=== PATIENT | male | born 1945 | race Caucasian/White ===

== ENCOUNTER 2023-10-06 11:22 | Emergency (ER) | payer OTHER ==
[2023-10-06] MEDS ORDERED: PAXLOVID PO ×2 (12:18→13:44)
[2023-10-06] MEDS ORDERED: BENZONATATE200 MG PO ×2 (12:18→13:44)
[2023-10-06 13:35] VITALS: BP 133/70
== END 2023-10-06 13:54 | disposition home or self-care (01) | DRG 179 ==
LOC: ED 11:22
DX: U07.1 COVID-19 (principal); R05.9 Cough, unspecified; R52 Pain, unspecified; R68.83 Chills (without fever); I10 Essential (primary) hypertension; E11.9 Type 2 diabetes mellitus without complications; I48.91 Unspecified atrial fibrillation

== ENCOUNTER 2024-11-08 07:58 | Emergency (ER) | payer OTHER ==
[~2024-11-08] VITALS: Ht 180.3 cm; Wt 113.0 kg
[~2024-11-08 07:58] MED LIST: BENZONATATE200 MG PO; PAXLOVID PO
[2024-11-08 08:06] VITALS: BP 134/67
[2024-11-08] MEDS ORDERED: COLCHICINE 0.6 MG/TAB PO ONE (08:15)
[2024-11-08] MEDS ORDERED: predniSONE 20 MG/TAB PO ONE (08:15)
[2024-11-08 08:16] VITALS: BP 106/65
[2024-11-08 08:45] VITALS: BP 118/55
[2024-11-08 09:00] VITALS: BP 104/58
[2024-11-08] MEDS ORDERED: MITIGARE0.6 MG PO (09:08)
[2024-11-08] MEDS ORDERED: PREDNISONE20 MG PO (09:08)
[2024-11-08] MEDS ORDERED: TRAMADOL HYDROC50 M1 PO (09:10)
[2024-11-08 09:15] VITALS: BP 115/60
== END 2024-11-08 09:21 | disposition home or self-care (01) | DRG 554 ==
LOC: ED 07:58
DX: M10.032 Idiopathic gout, left wrist (principal); E11.40 Type 2 diabetes mellitus with diabetic neuropathy, unspecified; I10 Essential (primary) hypertension; I48.91 Unspecified atrial fibrillation